=== PATIENT | female | born 1975 | race Two or more races ===

== ENCOUNTER 2017-09-09 08:17 | Outpatient (CLI) | payer OTHER | END 2017-09-09 08:27 | disposition home or self-care (01) | LOC: LAB 08:17 | DX: K80.10 Calculus of gallbladder with chronic cholecystitis without obstruction (principal) ==

== ENCOUNTER 2017-09-09 08:29 | Outpatient (CLI) | payer OTHER | END 2017-09-09 08:35 | disposition home or self-care (01) | LOC: LAB 08:29 → RAD 08:29 | DX: K80.10 Calculus of gallbladder with chronic cholecystitis without obstruction (principal) ==

== ENCOUNTER 2017-10-02 12:19 | Day surgery (SDC) | payer OTHER | END 2017-10-02 16:10 | disposition home or self-care (01) | LOC: AMB-ENDOS 12:19 | DX: K80.20 Calculus of gallbladder without cholecystitis without obstruction (principal) ==